=== PATIENT | male | born 1985 | race Caucasian/White ===

== ENCOUNTER 2017-01-28 19:38 | Emergency (ER) | payer OTHER ==
[~2017-01-28] VITALS: Ht 182.9 cm; Wt 93.0 kg
--- NOTE | 2017-01-29 19:17 | EKG ---
[facility] [address] [facility] [place], [place] [address] Signed Sinus bradycardia Otherwise normal ECG No previous ECGs available Confirmed by NINA RAE MD ([id number]) on 01/29/2017 7:17:24 PM Electronically Signed By: NINA RAE MD 01/29/17 1917 PATIENT NAME: MARVIN HAMMOND JR Electrocardiogram DATE OF : 85 PHYSICIAN: NINA RAE MD REPORT #: [id number] REPORT IS CONFIDENTIAL AND NOT TO BE RELEASED WITHOUT AUTHORIZATION
== END 2017-01-28 22:24 | disposition home or self-care (01) ==
LOC: ED 19:38
DX: R55 Syncope and collapse (principal); R22.2 Localized swelling, mass and lump, trunk; Z98.890 Other specified postprocedural states
CPT/HCPCS: 93005; 93010; 99283

== ENCOUNTER 2021-11-13 16:13 | Emergency (ER) | payer OTHER ==
[~2021-11-13] VITALS: Ht 182.9 cm; Wt 81.7 kg
--- OUTSIDE RECORDS SUMMARY | 2021-11-13 16:22 | XMS ---
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 ECesar VISIT COUNT (12 MO.) 1 AYANA Ruth TOTAL 1 NOTE: Visits indicate total known visits. ED/UCC VISIT TRACKING (12 MO.) 11/13/2021 16:15 AYANA Ty OR TYPE: Emergency COMPLAINT: - SOB, LOWER BACK PAIN INPATIENT VISIT TRACKING (12 MO.) No inpatient visits to display in this time frame [email or web address]
[2021-11-13] MEDS ORDERED: OMEPRAZOLE20 MG PO (16:30)
[2021-11-13] MEDS ORDERED: HYDROXYZINE HCL25 MG PO (17:57)
== END 2021-11-13 18:17 | disposition home or self-care (01) ==
LOC: ED 16:13
DX: F41.9 Anxiety disorder, unspecified (principal); I10 Essential (primary) hypertension; Z20.822 Contact with and (suspected) exposure to COVID-19
CPT/HCPCS: 71046; 87502; 99285-25; C9803; U0003